=== PATIENT | male | born 2000 | race Caucasian/White ===

== ENCOUNTER 2022-08-22 12:00 | Emergency (ER) | payer SELFPAY ==
[2022-08-22] MEDS ORDERED: Ibuprofen 600 MG Tab PO ONE (12:36)
== END 2022-08-22 14:46 | disposition home or self-care (01) ==
LOC: MW.ED 12:00
DX: S82.841A Displaced bimalleolar fracture of right lower leg, initial encounter for closed fracture (principal); W18.42XA Slipping, tripping and stumbling without falling due to stepping into hole or opening, initial encounter
CPT/HCPCS: 29515; 73610; 99283; A9270; 99282